=== PATIENT | male | born 1950 | race Caucasian/White ===

== ENCOUNTER → 2017-04-07 | Outpatient (CLI) | payer BC, MEDICARE | END | disposition home or self-care (01) | LOC: MRI 09:24 | DX: M48.061 Spinal stenosis, lumbar region without neurogenic claudication (principal); M79.604 Pain in right leg; M79.605 Pain in left leg; M43.16 Spondylolisthesis, lumbar region; M51.36 Other intervertebral disc degeneration, lumbar region; M51.37 Other intervertebral disc degeneration, lumbosacral region; R53.1 Weakness | CPT/HCPCS: 72148 ==

== ENCOUNTER → 2017-04-30 | Outpatient (CLI) | payer BC, MEDICARE | END | disposition home or self-care (01) | LOC: PNCL 12:47 | DX: M48.061 Spinal stenosis, lumbar region without neurogenic claudication (principal); I10 Essential (primary) hypertension; K21.9 Gastro-esophageal reflux disease without esophagitis; G62.9 Polyneuropathy, unspecified; G47.30 Sleep apnea, unspecified; E66.9 Obesity, unspecified; Z90.49 Acquired absence of other specified parts of digestive tract; Z79.84 Long term (current) use of oral hypoglycemic drugs | CPT/HCPCS: 99214 ==

== ENCOUNTER → 2017-05-07 | Outpatient (CLI) | payer BC, MEDICARE ==
[~2017-05-07] MED LIST: IOHEXOL 180 MG/ML 10 ML VIAL.; methylPREDNISolone ACETATE 40 MG/ML VIAL.; methylPREDNISolone ACETATE 80 MG/ML VIAL.
== END | disposition home or self-care (01) ==
LOC: PNCL 13:07
DX: M51.16 Intervertebral disc disorders with radiculopathy, lumbar region (principal)
CPT/HCPCS: 62323; J1030; J1040; Q9965

== ENCOUNTER → 2017-05-20 | Outpatient (CLI) | payer BC, MEDICARE | END | disposition home or self-care (01) | LOC: PNCL 10:05 | DX: M51.16 Intervertebral disc disorders with radiculopathy, lumbar region (principal) | CPT/HCPCS: 62323; J1030; J1040; Q9965 ==

== ENCOUNTER 2019-02-04 21:10 | Emergency (ER) | payer BC, MEDICARE ==
[~2019-02-04] VITALS: Ht 182.9 cm; Wt 154.2 kg
[~2019-02-04 21:10] MED LIST changes: +ACET500T68 PO; +GABA-689 PO; +GLIM1TAB3 PO; -IOHEXOL 180 MG/ML 10 ML VIAL.; +LANS30CA PO; +LOSA1TAB25 PO; +MECL25TA3 PO; +METF10007 PO; +PROP80CA3 PO; +TRAZ-118 PO; -methylPREDNISolone ACETATE 40 MG/ML VIAL.; -methylPREDNISolone ACETATE 80 MG/ML VIAL.
[2019-02-04] MEDS ORDERED: ONDANSETRON PF 4 MG/2 ML VIAL. ONE (21:50)
[2019-02-04 21:57] LABS: BASO # 0.1 x10^3/uL (0.0-0.2); BASO % 1 % (0-3); EOS # 0.3 x10^3/uL (0.0-0.7); EOS % 2 % (0-3); HEMATOCRIT 43.2 % (39.0-53.0); HEMOGLOBIN 14.4 g/dL (13.0-17.5); LYMPH # 1.1 x10^3/uL (1.0-4.8); LYMPH % 8 % (24-48); MEAN CORPUSCULAR HEMOGLOBIN 30 pg (25-35); MEAN CORPUSCULAR HGB CONC 33 g/dL (31-37); MEAN CORPUSCULAR VOLUME 90 fL (79-100); MONO % 7 % (0-9); NEUT # 10.8 x10^3/uL (1.8-7.7); NEUT % 82 % (31-73); PLATELET COUNT 216 x10^3/uL (140-400); RED CELL DISTRIBUTION WIDTH 14.3 % (11.5-14.5); WHITE BLOOD COUNT 13.2 x10^3/uL (4.0-11.0)
--- NOTE | 2019-02-04 21:59 | PHYS DOC ---
Past Medical History Past Medical History: Diabetes-Type II, Hypertension, Other Additional Past Medical Histor: neuropathy, tremors Past Surgical History: Appendectomy, Cholecystectomy Alcohol Use: Rarely Drug Use: None Adult General Chief Complaint Chief Complaint: FLANK PAIN HPI HPI 68-year-old male with underlying history of hypertension, diabetes presents to emergency Department complaints of left flank pain, nausea, vomiting. Patient states the pain started around 4 PM, describes the pain as sharp and progressively worsening. Pain radiates from his left flank around to his left groin. His any dysuria or urinary frequency. He does have a history of kidney stones in the past however states is been several years ago. Nothing makes his pain worse nothing makes his pain better. Review of Systems Review of Systems Constitutional: Denies fever or chills [] Respiratory: Denies cough or shortness of breath [] Cardiovascular: No additional information not addressed in HPI [] GI: + nausea, vomiting, no bloody stools or diarrhea [] : Denies dysuria or hematuria [] Musculoskeletal: left flank pain Integument: Denies rash or skin lesions [] Neurologic: Denies headache, focal weakness or sensory changes [] All other systems were reviewed and found to be within normal limits, except as documented in this note. Current Medications Current Medications Current Medications Medications (Trade) Dose Ordered Sig/Joy Start Time Stop Time Status Last Admin Dose Admin Ketorolac Tromethamine (Toradol 30mg Vial) 30 mg 1X ONCE 02/04/19 22:15 02/04/19 22:16 DC 02/04/19 22:08 30 MG Ondansetron HCl (Zofran) 4 mg 1X ONCE 02/04/19 22:15 02/04/19 22:16 DC 02/04/19 21:51 4 MG Sodium Chloride 1,000 ml @ 1,000 mls/hr 1X ONCE 02/04/19 22:15 02/04/19 23:14 DC 02/04/19 22:09 1,000 MLS/HR Allergies Allergies Allergies Coded Allergies Type Severity Reaction Last Updated Verified No Known Drug Allergies 03/04/16 No Physical Exam Physical Exam Constitutional: Well developed, well nourished, no acute distress, non-toxic appearance. [] HENT: Normocephalic, atraumatic, bilateral external ears normal, oropharynx moist, no oral exudates, nose normal. [] Eyes: PERRLA, EOMI, conjunctiva normal, no discharge. [] Cardiovascular: tachycardia Lungs & Thorax: Bilateral breath sounds clear to auscultation [] Abdomen: Bowel sounds normal, soft, no tenderness, no masses, no pulsatile masses. [] Skin: Warm, dry, no erythema, no rash. [] Back: No tenderness, no CVA tenderness. [] Extremities: No tenderness, no edema. [] Neurologic: Alert and oriented X 3, no focal deficits noted. [] Psychologic: Affect normal, judgement normal, mood normal. [] Current Patient Data Vital Signs Vital Signs Date Time Temp Pulse Resp B/P (MAP) Pulse Ox O2 Delivery O2 Flow Rate FiO2 02/04/19 22:12 98.1 75 22 228/122 (157) 97 Room Air 98.1 Lab Values Laboratory Tests Test 02/04/19 21:37 02/04/19 22:09 White Blood Count 13.2 x10^3/uL (4.0-11.0) H Red Blood Count 4.80 x10^6/uL (4.30-5.70) Hemoglobin 14.4 g/dL (13.0-17.5) Hematocrit 43.2 % (39.0-53.0) Mean Corpuscular Volume 90 fL (79-100) Mean Corpuscular Hemoglobin 30 pg (25-35) Mean Corpuscular Hemoglobin Concent 33 g/dL (31-37) Red Cell Distribution Width 14.3 % (11.5-14.5) Platelet Count 216 x10^3/uL (140-400) Neutrophils (%) (Auto) 82 % (31-73) H Lymphocytes (%) (Auto) 8 % (24-48) L Monocytes (%) (Auto) 7 % (0-9) Eosinophils (%) (Auto) 2 % (0-3) Basophils (%) (Auto) 1 % (0-3) Neutrophils # (Auto) 10.8 x10^3/uL (1.8-7.7) H Lymphocytes # (Auto) 1.1 x10^3/uL (1.0-4.8) Monocytes # (Auto) 1.0 x10^3/uL (0.0-1.1) Eosinophils # (Auto) 0.3 x10^3/uL (0.0-0.7) Basophils # (Auto) 0.1 x10^3/uL (0.0-0.2) Sodium Level 140 mmol/L (136-145) Potassium Level 4.1 mmol/L (3.5-5.1) Chloride Level 100 mmol/L (98-107) Carbon Dioxide Level 31 mmol/L (21-32) Anion Gap 9 (6-14) Blood Urea Nitrogen 19 mg/dL (8-26) Creatinine 1.2 mg/dL (0.7-1.3) Estimated GFR (Cockcroft-Gault) 60.0 BUN/Creatinine Ratio 16 (6-20) Glucose Level 177 mg/dL (70-99) H Calcium Level 8.9 mg/dL (8.5-10.1) Total Bilirubin 0.3 mg/dL (0.2-1.0) Aspartate Amino Transferase (AST) 43 U/L (15-37) H Alanine Aminotransferase (ALT) 75 U/L (16-63) H Alkaline Phosphatase 83 U/L (46-116) Total Protein 8.6 g/dL (6.4-8.2) H Albumin 3.7 g/dL (3.4-5.0) Albumin/Globulin Ratio 0.8 (1.0-1.7) L Urine Collection Type Unknown Urine Color Brown Urine Clarity Turbid Urine pH Urine Specific Thornton Urine Protein mg/dL (NEG-TRACE) Urine Glucose (UA) mg/dL (NEG) Urine Ketones (Stick) mg/dL (NEG) Urine Blood (NEG) Urine Nitrite (NEG) Urine Bilirubin (NEG) Urine Urobilinogen Dipstick mg/dL (0.2 mg/dL) Urine Leukocyte Esterase (NEG) Urine RBC Tntc /HPF (0-2) Urine WBC 11-20 /HPF (0-4) Urine Squamous Epithelial Cells Few /LPF Urine Bacteria Few /HPF (0-FEW) Urine Mucus Marked /LPF Laboratory Tests 02/04/19 21:37 Laboratory Tests 02/04/19 21:37 EKG EKG [] Radiology/Procedures Radiology/Procedures [facility] [id number] [place], [place] [id number] IMAGING REPORT Signed PATIENT: JUAN GREENFIELD ACCOUNT: [id number] : 1950 LOCATION: ER AGE: 68 SEX: M EXAM STATUS: REG ER ORD. PHYSICIAN: DONELL REBOLLAR MD REASON: concern for left kidney stone PROCEDURE: CT ABDOMEN PELVIS WO CONTRAST Study: CT abdomen and pelvis without contrast Indication: Concern for left kidney stone. Comparison: 01/29/2013 Technique: Helical CT imaging performed of the abdomen and pelvis without the use of intravenous contrast. Sagittal and coronal reformats were obtained. One or more of the following individualized dose reduction techniques were utilized for this examination: 1. Automated exposure control 2. Adjustment of the mA and/or kV according to patient size 3. Use of iterative reconstruction technique. Findings: Calcific coronary artery disease. Sequela of a remote granulomatous process. Unremarkable liver. The gallbladder is surgically absent. Unremarkable pancreas. Splenic granulomas. Normal adrenal glands. Perinephric fat stranding bilaterally. Mild hydroureter and calyceal dilatation on the left in the setting of a nephrolithiasis within the distal third of the ureter approaching the ureterovesicular junction. This stone is seen on image 210 series 2 and measures 3 mm. No nephrolithiasis seen on the right. Collapsed urinary bladder. Normal size of the prostate. Unremarkable colon, small bowel and stomach. Multifocal calcific atherosclerosis. No lymphadenopathy. Multifocal osseous degenerative changes. No acute or destructive abnormality. Impression: Within the distal aspect of the left ureter approaching the ureterovesicular junction is a 3 mm nephrolithiasis that results in mild upstream collecting system dilatation. Electronically signed by: MARGARITO HARRIS MD (02/04/2019 11:03 PM) [facility] DICTATED and SIGNED BY: MARGARITO HARRIS MD DATE: 02/04/19 927 [] Course & Med Decision Making Course & Med Decision Making Pertinent Labs and Imaging studies reviewed. (See chart for details) []68-year-old male with underlying history of hypertension, diabetes presents to emergency Department complaints of left flank pain, nausea, vomiting. Patient states the pain started around 4 PM, describes the pain as sharp and progressively worsening. Pain radiates from his left flank around to his left groin. His any dysuria or urinary frequency. He does have a history of kidney stones in the past however states is been several years ago. Nothing makes his pain worse nothing makes his pain better. Labs and imaging reviewed. White blood cell count 13.2 urinalysis with evidence of urinary tract infection. Creatinine 1.2 CT reveals evidence of left distal ureter he millimeters stone close to the UVJ. Mild dilatation of the ureter Discussed findings with patient. Nothing has resolved with Toradol. We'll plan discharge with antibiotic, Flomax, diclofenac, Zofran. Discussed return precautions with patient and family at bedside. Dragon Disclaimer Dragon Disclaimer This electronic medical record was generated, in whole or in part, using a voice recognition dictation system. Departure Departure Impression: Primary Impression: Renal colic on left side Disposition: HOME, SELF-CARE Condition: IMPROVED Referrals: ALLIE AMARAL MD (PCP) Patient Instructions: Kidney Stones, [id number] Additional Instructions: Recommend follow up with PCP 3 - 5 days Return to the ER with worsening symptoms, intractable pain, fever, altered mental status Tylenol as needed for pain Take antibiotics as directed Take pain medications/anti-emetic as directed Scripts Ondansetron Hcl (ZOFRAN) 4 Mg Tablet 1 TAB PO PRN Q6-8HRS for nausea, #12 TAB Prov: DONELL REBOLLAR MD 02/04/19 Diclofenac Potassium (DICLOFENAC POTASSIUM) 50 Mg Tablet 1 TAB PO BID for 3 Days, #6 TAB 1 Refill Prov: DONELL REBOLLAR MD 02/04/19 Tamsulosin Hcl (FLOMAX) 0.4 Mg Cap.er.24h 1 CAP PO DAILY, #14 CAP 0 Refills Prov: DONELL REBOLLAR MD 02/04/19 Cephalexin (KEFLEX) 500 Mg Capsule 2 CAP PO Q12HR for 5 Days, #20 CAP Prov: DONELL REBOLLAR MD 02/04/19 DONELL REBOLLAR MD Feb 04, 2019 21:59
[2019-02-04 22:04] LABS: CALCIUM 8.9 mg/dL (8.5-10.1); CREATININE 1.2 mg/dL (0.7-1.3); POTASSIUM 4.1 mmol/L (3.5-5.1)
[2019-02-04 22:11] LABS: ALBUMIN 3.7 g/dL (3.4-5.0); ALBUMIN/GLOBULIN RATIO 0.8 (1.0-1.7); TOTAL BILIRUBIN 0.3 mg/dL (0.2-1.0); TOTAL PROTEIN 8.6 g/dL (6.4-8.2)
[2019-02-04] MEDS ORDERED: ONDANSETRON PF 4 MG/2 ML VIAL. IV ONE (22:15)
[2019-02-04] MEDS ORDERED: KETOROLAC 30 MG/ML VIAL. IVP ONE (22:15)
[2019-02-04] MEDS ORDERED: IV NORMAL SALINE 1000ML BAG 1,000 ML IV ONE (22:15)
[2019-02-04 22:17] LABS: CLARITY,URINE TURBID
[2019-02-04 22:25] LABS: COLOR,URINE BROWN
[2019-02-04 22:40] LABS: BACTERIA,URINE FEW /HPF (0-FEW); RBC,URINE TNTC /HPF (0-2); SQUAMOUS EPITHELIAL CELL,UR FEW /LPF
--- NOTE | 2019-02-04 23:06 | RAD ---
Study: CT abdomen and pelvis without contrast Indication: Concern for left kidney stone. Comparison: 01/29/2013 Technique: Helical CT imaging performed of the abdomen and pelvis without the use of intravenous contrast. Sagittal and coronal reformats were obtained. One or more of the following individualized dose reduction techniques were utilized for this examination: 1. Automated exposure control 2. Adjustment of the mA and/or kV according to patient size 3. Use of iterative reconstruction technique. Findings: Calcific coronary artery disease. Sequela of a remote granulomatous process. Unremarkable liver. The gallbladder is surgically absent. Unremarkable pancreas. Splenic granulomas. Normal adrenal glands. Perinephric fat stranding bilaterally. Mild hydroureter and calyceal dilatation on the left in the setting of a nephrolithiasis within the distal third of the ureter approaching the ureterovesicular junction. This stone is seen on image 210 series 2 and measures 3 mm. No nephrolithiasis seen on the right. Collapsed urinary bladder. Normal size of the prostate. Unremarkable colon, small bowel and stomach. Multifocal calcific atherosclerosis. No lymphadenopathy. Multifocal osseous degenerative changes. No acute or destructive abnormality. Impression: Within the distal aspect of the left ureter approaching the ureterovesicular junction is a 3 mm nephrolithiasis that results in mild upstream collecting system dilatation. Electronically signed by: MARGARITO HARRIS MD (02/04/2019 11:03 PM) [facility]
[2019-02-04] MEDS ORDERED: DICL50TA2 PO (23:21)
[2019-02-04] MEDS ORDERED: CEPH-264 PO (23:21)
[2019-02-04] MEDS ORDERED: TAMS0.4C97 PO (23:21)
[2019-02-04] MEDS ORDERED: ONDA4TAB7 PO (23:21)
[2019-02-04 23:26] VITALS: BP 163/73
== END 2019-02-04 23:30 | disposition home or self-care (01) ==
LOC: ER 21:10
DX: N20.0 Calculus of kidney (principal); N13.4 Hydroureter; E11.40 Type 2 diabetes mellitus with diabetic neuropathy, unspecified; I10 Essential (primary) hypertension; Z90.89 Acquired absence of other organs; Z90.49 Acquired absence of other specified parts of digestive tract
CPT/HCPCS: 36415; 74176; 80053; 81001; 85025; 87086; 96361; 96374; 96375; 99285; J1885; J2405; J7030

== ENCOUNTER → 2019-08-22 | Outpatient (CLI) | payer MEDICARE ==
[~2019-08-22] MED LIST changes: +CEPH-264 PO; +DICL50TA2 PO; -GLIM1TAB3 PO; +GLIM1TAB7 PO; +MECL-75 PO; -MECL25TA3 PO; +ONDA4TAB7 PO; +TAMS0.4C97 PO
--- NOTE | 2019-08-22 16:54 | RAD ---
AP and Lateral Views of the Chest 08/22/2019 12:00 AM Indication: Reason: cough x10 days. hx of diabetes / Spl. Instructions: / History: Comparison: Chest radiograph March 04, 2016 Findings: Mild right basilar atelectasis or infiltrate is seen. No pneumothorax or definitive effusion is identified. The heart is enlarged, similar to prior exam. No acute osseous changes are identified. IMPRESSION: 1. Mild right basilar atelectasis or infiltrate. Radiographic follow-up recommended to ensure resolution 2. Cardiomegaly Electronically signed by: Chay Patino MD (08/22/2019 4:51 PM) [id number]
== END | disposition home or self-care (01) ==
LOC: RAD 15:49
PROVIDERS: ATTEND Family Medicine
DX: I51.7 Cardiomegaly (principal); R06.02 Shortness of breath; R09.89 Other specified symptoms and signs involving the circulatory and respiratory systems; Z86.39 Personal history of other endocrine, nutritional and metabolic disease
CPT/HCPCS: 71046